=== PATIENT | male | born 1955 | race Caucasian/White ===

== ENCOUNTER 2017-02-06 09:33 | Emergency (ER) | payer OTHER ==
[~2017-02-06] VITALS: Ht 172.7 cm; Wt 121.6 kg
[2017-02-06 10:42] VITALS: BP 140/74
== END 2017-02-06 10:47 | disposition home or self-care (01) ==
LOC: ED 09:33
DX: R51 Headache (principal); F99 Mental disorder, not otherwise specified
CPT/HCPCS: J1885